=== PATIENT | male | born 1980 | race Caucasian/White ===

== ENCOUNTER 2016-12-17 02:19 | Emergency (ER) | payer MEDICARE ==
[~2016-12-17] VITALS: Ht 170.2 cm; Wt 96.0 kg
--- NOTE | 2016-12-17 02:23 | ED.ADGEN ---
Past History Past Medical History: Kidney Stones, Other Past Surgical History: Other Adult General Chief Complaint Chief Complaint " I got this really severe abd. pain down here on the Rt. it started about a hour ago.. I ve never had anything like this.... ".. " I did eat a little a couple hours ago... I can never eat much because of a gastric sleeve they put in for weight loss.. I loss about 100 lbs...".." I feel like I got to...pee.. or I got to have a stool... or something..." HPI HPI Patient is a 36 year old male who presents with severe 10/10 Rt. lower abd. pain with acute onset a hour ago,. Pain is localized right lower quadrant. Patient denies any history kidney stones. Patient denies any family history of known kidney stones. Patient denies any intake of bad food. Patient denies any travel. Patient denies any ill contacts. Patient follows at [facility]. Has had weight loss of 100 pounds in the past year after a gastric sleeve. Patient states nothing makes the pain better. Pain comes and severe waves as if someone is stabbing him. Review of Systems Review of Systems Constitutional: Denies fever or chills [] Eyes: Denies change in visual acuity, redness, or eye pain [] HENT: Denies nasal congestion or sore throat [] Respiratory: Denies cough or shortness of breath [] Cardiovascular: No additional information not addressed in HPI [] GI: Patient complains of severe abdominal pain, nausea,. Denies vomiting, bloody stools or diarrhea [] : Denies dysuria or hematuria [] Musculoskeletal: Denies back pain or joint pain [] Integument: Denies rash or skin lesions [] Neurologic: Denies headache, focal weakness or sensory changes [] Endocrine: Denies polyuria or polydipsia [] Family History Family History Noncontributory Current Medications Current Medications Current Medications Medications (Trade) Dose Ordered Sig/Jose Start Time Stop Time Status Last Admin Dose Admin Famotidine (Pepcid) 20 mg STK-MED ONCE 12/17/16 02:34 12/17/16 02:35 DC Ketorolac Tromethamine (Toradol) 30 mg 1X ONCE 12/17/16 04:15 12/17/16 04:15 DC Lactated Ringer's (Iv Lactated Ringers) 1,000 ml @ 1,000 mls/hr 1X ONCE 12/17/16 04:00 12/17/16 04:59 DC 12/17/16 04:00 1,000 MLS/HR Magnesium Hydroxide (Milk Of Magnesia) 2,400 mg 1X ONCE 12/17/16 04:15 12/17/16 04:16 UNV Morphine Sulfate (Morphine 10mg Syringe) 10 mg STK-MED ONCE 12/17/16 02:33 12/17/16 02:34 DC Morphine Sulfate (Morphine 5mg Syringe) 5 mg 1X ONCE 12/17/16 03:00 12/17/16 03:05 DC 12/17/16 03:16 5 MG Morphine Sulfate 5 mg 5 mg PRN Q1MIN PRN 12/17/16 03:00 Ondansetron HCl (Zofran) 4 mg STK-MED ONCE 12/17/16 02:34 12/17/16 02:35 DC See nursing for home meds Allergies Allergies Allergies Coded Allergies Type Severity Reaction Last Updated Verified No Known Allergies Allergy Unknown 12/17/16 Yes No known drug allergies Physical Exam Physical Exam Constitutional: Well developed, well nourished, in acute distress, non-toxic appearance. [] HENT: Normocephalic, atraumatic, bilateral external ears normal, oropharynx moist, no oral exudates, nose normal. [] Eyes: PERRLA, EOMI, conjunctiva normal, no discharge. [] Neck: Normal range of motion, no tenderness, supple, no stridor. [] Cardiovascular: Bradycardic Heart rate regular rhythm, no murmur [] Lungs & Thorax: Bilateral breath sounds equal at apexes with a few scattered wheezes on auscultation [] Abdomen: Bowel sounds decreased, soft, right lower quadrant tenderness, no masses, no pulsatile masses. Declines rectal exam at this time. Old surgical scar. No true rebound. Skin: Warm, diaphoretic, no erythema, no rash. [] Back: No tenderness, mild right flank CVA tenderness. [] Extremities: No tenderness, no cyanosis, no clubbing, ROM intact, no edema. No psoas or heeltap. Neurologic: Alert and oriented X 3, normal motor function, normal sensory function, no focal deficits noted. [] Psychologic: Affect anxious judgement normal, mood normal. [] Current Patient Data Vital Signs Vital Signs Date Time Temp Pulse Resp B/P Pulse Ox O2 Delivery O2 Flow Rate FiO2 12/17/16 04:00 47 14 133/75 94 Nasal Cannula 3 12/17/16 02:25 97.3 Lab Results Laboratory Tests Test 12/17/16 02:50 White Blood Count 11.4x10^3/uL (4.0-11.0) H Red Blood Count 4.73x10^6/uL (4.30-5.70) Hemoglobin 14.5g/dL (13.0-17.5) Hematocrit 43.6% (39.0-53.0) Mean Corpuscular Volume 92fL (79-100) Mean Corpuscular Hemoglobin 31pg (25-35) Mean Corpuscular Hemoglobin Concent 33g/dL (31-37) Red Cell Distribution Width 13.7% (11.5-14.5) Platelet Count 268x10^3/uL (140-400) Neutrophils (%) (Auto) 59% (31-73) Lymphocytes (%) (Auto) 29% (24-48) Monocytes (%) (Auto) 10% (0-9) H Eosinophils (%) (Auto) 1% (0-3) Basophils (%) (Auto) 1% (0-3) Neutrophils # (Auto) 6.7x10^3uL (1.8-7.7) Lymphocytes # (Auto) 3.3x10^3/uL (1.0-4.8) Monocytes # (Auto) 1.1x10^3/uL (0.0-1.1) Eosinophils # (Auto) 0.1x10^3/uL (0.0-0.7) Basophils # (Auto) 0.1x10^3/uL (0.0-0.2) Prothrombin Time 11.3SEC (9.4-11.4) Prothrombin Time INR 1.1 (0.9-1.1) PTT 24SEC (23-33) Urine Collection Type Unknown Urine Color Yellow Urine Clarity Hazy Urine pH 6.5 Urine Specific Dawson 1.025 Urine Protein Neg (NEG-TRACE) Urine Glucose (UA) Negmg/dL (NEG) Urine Ketones (Stick) Negmg/dL (NEG) Urine Blood Large (NEG) Urine Nitrite Neg (NEG) Urine Bilirubin Neg (NEG) Urine Urobilinogen Dipstick 2mg/dL (0.2 mg/dL) Urine Leukocyte Esterase Neg (NEG) Urine RBC >40/HPF (0-2) Urine WBC Occ/HPF (0-4) Urine Squamous Epithelial Cells Occ/LPF Urine Bacteria Few/HPF (0-FEW) Urine Mucus Slight/LPF Sodium Level 144mmol/L (136-145) Potassium Level 3.3mmol/L (3.5-5.1) L Chloride Level 108mmol/L (98-107) H Carbon Dioxide Level 25mmol/L (21-32) Anion Gap 11 (6-14) Blood Urea Nitrogen 12mg/dL (8-26) Creatinine 1.2mg/dL (0.7-1.3) Estimated GFR (Cockcroft-Gault) 68.1 Glucose Level 127mg/dL (70-99) H Calcium Level 8.5mg/dL (8.5-10.1) Total Bilirubin 0.8mg/dL (0.2-1.0) Direct Bilirubin 0.2mg/dL (0.0-0.2) Aspartate Amino Transferase (AST) 14U/L (15-37) L Alanine Aminotransferase (ALT) 18U/L (16-63) Alkaline Phosphatase 63U/L (46-116) Total Protein 6.1g/dL (6.4-8.2) L Albumin 3.7g/dL (3.4-5.0) Amylase Level 46U/L (25-115) Lipase 107U/L (73-393) Urine Opiates Screen Neg (NEG) Urine Methadone Screen Neg (NEG) Urine Barbiturates Neg (NEG) Urine Phencyclidine Screen Neg (NEG) Urine Amphetamine/Methamphetamine Pos (NEG) Urine Benzodiazepines Screen Neg (NEG) Urine Cocaine Screen Neg (NEG) Urine Cannabinoids Screen Neg (NEG) Urine Ethyl Alcohol Neg (NEG) EKG EKG My interpretation EKG shows a sinus bradycardia 50 bpm. Does have an occasional premature atrial complex. No findings of acute STEMI. Some mild left axis deviation. [] Radiology/Procedures Radiology/Procedures My interpretation of CT of abdomen shows mild hydronephrosis and a distal renal stone on the right. No free air. Findings of prior abdomen surgeries. See formal report when available. [] Course & Med Decision Making Course & Med Decision Making Pertinent Labs and Imaging studies reviewed. (See chart for details). Stay on a clear fluid diet only for the next 48 hours. No solid or milk products. Push clear fluids. Take Zofran 8 mg up to 4 times a day for nausea and vomiting. May take Tylenol and ibuprofen for pain. For marked pain may take Vicoprofen up 4 times a day. Must follow-up primary care. If you passed stone save it for analysis. Return if any concerns. Take MOM daily if taking the narcotics.- Vicoprofen. [] Final Impression Final Impression 1. Abd. Pain[] 2. Renal colic 3. Renal stone on Rt. - distal Problems: Dragon Disclaimer Dragon Disclaimer This electronic medical record was generated, in whole or in part, using a voice recognition dictation system. FRANCI SHI MD Dec 17, 2016 02:22
[2016-12-17] MEDS ORDERED: MORPHINE SULFATE 10 MG/ML SYRINGE. ONE (02:33)
[2016-12-17] MEDS ORDERED: IV RINGERS SOLUTION,LACTATED 1,000 ML IV ONE ×2 (02:33→04:00)
[2016-12-17] MEDS ORDERED: ONDANSETRON PF 4 MG/2 ML VIAL. ONE (02:34)
[2016-12-17] MEDS ORDERED: FAMOTIDINE 20 MG/2 ML VIAL ONE (02:34)
[2016-12-17] MEDS: IV RINGERS SOLUTION,LACTATED 1,000 ML IV SCH ×2 (02:41→03:56)
[2016-12-17] MEDS ORDERED: MORPHINE SULFATE 5 MG/ML SYRINGE. ONE (02:48)
[2016-12-17] MEDS ORDERED: MORPHINE SULFATE 5 MG/ML SYRINGE. IV ONE ×3 (03:00)
[2016-12-17] MEDS ORDERED: ONDANSETRON PF 4 MG/2 ML VIAL. IV ONE (03:00)
[2016-12-17] MEDS ORDERED: FAMOTIDINE 20 MG/2 ML VIAL IVP ONE (03:00)
[2016-12-17] MEDS ORDERED: MORPHINE SULFATE 5 MG/ML SYRINGE. IV PRN (03:00)
[2016-12-17] MEDS ORDERED: MORPHINE SULFATE 10 MG/ML SYRINGE. SQ ONE (03:00)
[2016-12-17 03:14] LABS: BASO # 0.1 x10^3/uL (0.0-0.2); BASO % 1 % (0-3); EOS # 0.1 x10^3/uL (0.0-0.7); EOS % 1 % (0-3); HEMATOCRIT 43.6 % (39.0-53.0); HEMOGLOBIN 14.5 g/dL (13.0-17.5); LYMPH # 3.3 x10^3/uL (1.0-4.8); LYMPH % 29 % (24-48); MEAN CORPUSCULAR HEMOGLOBIN 31 pg (25-35); MEAN CORPUSCULAR HGB CONC 33 g/dL (31-37); MEAN CORPUSCULAR VOLUME 92 fL (79-100); MONO # 1.1 x10^3/uL (0.0-1.1); MONO % 10 % (0-9); NEUT # 6.7 x10^3uL (1.8-7.7); NEUT % 59 % (31-73); PLATELET COUNT 268 x10^3/uL (140-400); RED BLOOD COUNT 4.73 x10^6/uL (4.30-5.70); RED CELL DISTRIBUTION WIDTH 13.7 % (11.5-14.5); WHITE BLOOD COUNT 11.4 x10^3/uL (4.0-11.0)
[2016-12-17 03:22] LABS: BACTERIA,URINE FEW /HPF (0-FEW); BILIRUBIN,URINE NEG (NEG); CLARITY,URINE HAZY; COLOR,URINE YELLOW; GLUCOSE,URINE NEG (NEG); NITRITE,URINE NEG (NEG); RBC,URINE >40 /HPF (0-2); SQUAMOUS EPITHELIAL CELL,UR OCC /LPF; UROBILINOGEN,URINE 2 mg/dL (0.2 mg/dL); WBC,URINE OCC /HPF (0-4)
[2016-12-17 03:26] LABS: BARBITURATES NEG (NEG); BENZODIAZEPINES NEG (NEG); CANNABINOIDS NEG (NEG); COCAINE NEG (NEG); METHADONE NEG (NEG); OPIATES NEG (NEG); PHENCYCLIDINE NEG (NEG)
[2016-12-17 03:28] LABS: AMPHETAMINE/METHAMPHETAMINE POS (NEG)
[2016-12-17 03:29] LABS: ALBUMIN 3.7 g/dL (3.4-5.0); CALCIUM 8.5 mg/dL (8.5-10.1); CREATININE 1.2 mg/dL (0.7-1.3); DIRECT BILIRUBIN 0.2 mg/dL (0.0-0.2); GFR 68.1; POTASSIUM 3.3 mmol/L (3.5-5.1); TOTAL BILIRUBIN 0.8 mg/dL (0.2-1.0); TOTAL PROTEIN 6.1 g/dL (6.4-8.2)
--- NOTE | 2016-12-17 03:43 | RAD ---
PROCEDURE CT abdomen and pelvis without contrast HISTORY 477737.001 Stone protocol: Severe right sided abdomen and flank pain today. No priors. TECHNIQUE CT abdomen and pelvis was done without intravenous or oral contrast. One or more of the following individualized dose reduction techniques were utilized for this examination: 1. Automated exposure control; 2. Adjustment of the mA and/or kV according to patient size; 3. Use of iterative reconstruction technique.One or more of the following individualized dose reduction techniques were utilized for this examination: 1. Automated exposure control; 2. Adjustment of the mA and/or kV according to patient size; 3. Use of iterative reconstruction technique. COMPARISON None FINDINGS The lung bases are clear. There is no effusion. Liver is normal in appearance. There is no calcified gallstone. Spleen and adrenal glands are unremarkable. There is changes from surgery at the stomach possibly a sleeve gastrectomy. There is a moderate-sized hiatus hernia in the chest. Adrenal glands and pancreas are unremarkable. There is a tiny 2 millimeter calculus in the mid left kidney. There is right hydronephrosis and hydroureter. There is a 3 millimeter calculus at the right ureteral vesicle junction. Bowel pattern is normal. Appendix is normal. IMPRESSION 3 millimeter calculus at the right ureterovesical junction with right hydronephrosis. Normal appendix Moderate hiatus hernia, previous gastric surgery 2 millimeter left renal calculus Electronically signed by: Ayush Nielsen MD (Dec 17, 2016 03:42:16)
--- NOTE | 2016-12-17 03:47 | EKG ---
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
[2016-12-17] MEDS ORDERED: HYDR-79 PO (04:09)
[2016-12-17] MEDS ORDERED: ONDA8TAB12 PO (04:09)
[2016-12-17] MEDS ORDERED: MAGN2400 PO (04:09)
[2016-12-17] MEDS ORDERED: KETOROLAC 30 MG/ML VIAL. IV ONE ×2 (04:15)
[2016-12-17] MEDS ORDERED: MAGNESIUM HYDROXIDE 2,400 MG/30 ML ORAL.SUSP. PO ONE ×2 (04:15→04:30)
[2016-12-17 05:30] VITALS: BP 142/93
== END 2016-12-17 05:30 | disposition home or self-care (01) ==
LOC: ER 02:19
DX: N23 Unspecified renal colic (principal); N20.0 Calculus of kidney; Z87.442 Personal history of urinary calculi
CPT/HCPCS: 36415; 74176; 80048; 80076; 80305; 81001; 82150; 83690; 85027; 85610; 85730; 93005; 96361; 96372; 96374; 96375; 99285; J1885; J2270; J2405; J7120; S0028; G0481